=== PATIENT | female | born 1970 | race Hispanic/Latino ===

== ENCOUNTER → 2020-03-03 | Outpatient (CLI) | payer OTHER | END | disposition home or self-care (01) | LOC: RAH 13:34 | PROVIDERS: ATTEND Nurse Practitioner Adult Health | DX: Z12.31 Encounter for screening mammogram for malignant neoplasm of breast (principal) | CPT/HCPCS: 77067 ==

== ENCOUNTER 2020-05-24 04:55 | Observation (INO) | payer OTHER ==
[~2020-05-24] VITALS: Ht 160 cm; Wt 81.6 kg
[2020-05-24 06:24] VITALS: BP 138/88
[2020-05-24] MEDS ORDERED: GLIM2TAB30 PO (06:26)
[2020-05-24] MEDS ORDERED: LACTULOSE 20 GM/30 ML UDCUP PO PRN (07:30)
[2020-05-24] MEDS ORDERED: ONDANSETRON HCL 4 MG/2 ML VIAL IV PRN (07:30)
[2020-05-24] MEDS ORDERED: ACETAMINOPHEN 325 MG TAB PO PRN (07:30)
[2020-05-24 07:32] VITALS: BP 144/77
[2020-05-24 07:49] LABS: BASOPHILS % (AUTO) 0.2 % (0.0-5.0); EOSINOPHILS % (AUTO) 0.4 % (0.0-8.0); HEMATOCRIT 36.2 % (36-48); LYMPHOCYTES % (AUTO) 12.7 % (21.0-51.0); MEAN CORPUSCULAR HEMOGLOBIN 28.6 pg (27.0-33.0); MEAN CORPUSCULAR HGB CONC 33.7 g/dL (32.0-36.0); MEAN CORPUSCULAR VOLUME 84.8 fL (79-99); MONOCYTES % (AUTO) 5.8 % (3.0-13.0); NEUTROPHILS % (AUTO) 80.5 % (40.0-77.0); PLATELET COUNT (AUTO) 286 K/uL (130-400); RED BLOOD CELL COUNT(AUTO) 4.27 MIL/uL (4.00-5.50); RED CELL DISTRIBUTION WIDTH 14.3 % (11.0-15.5); WHITE BLOOD COUNT (AUTO) 13.5 K/uL (4.8-10.8)
[2020-05-24] MEDS: CEFTRIAXONE SODIUM 1 GM IV SCH (08:10)
[2020-05-24] MEDS: SODIUM CHLORIDE 0.9% 1000ML 1,000 ML IV SCH ×3 (08:10→21:26)
[2020-05-24 08:33] LABS: ALBUMIN 2.9 g/dL (3.5-5.0); BILIRUBIN,TOTAL 0.9 mg/dL (0.2-1.0); CREATININE 0.8 mg/dL (0.5-1.5); POTASSIUM 3.6 mmol/L (3.5-5.1); TOTAL PROTEIN, SERUM 6.7 g/dL (6.0-8.3)
[2020-05-24] MEDS: ENOXAPARIN SODIUM 40 MG/0.4 ML SYRINGE SQ SCH (10:02)
[2020-05-24] MEDS: FAMOTIDINE 20MG TAB 20 MG TAB PO SCH ×2 (10:03→21:26)
[2020-05-24 11:15] VITALS: BP 151/81
[2020-05-24] MEDS: INSULIN HUMULIN R 100 UNIT/ML 3ML SQ SCH ×3 (12:37→21:36)
[2020-05-24] MEDS ORDERED: ATOR10TA69 PO (13:55)
[2020-05-24] MEDS ORDERED: METO-391 PO (13:55)
[2020-05-24] MEDS: ACETAMINOPHEN 325 MG TAB PO PRN (15:28)
[2020-05-24 16:20] VITALS: BP 162/91
[2020-05-24 19:32] VITALS: BP 165/90
[2020-05-24 23:26] VITALS: BP 156/84
[2020-05-25 04:05] VITALS: BP 158/94
[2020-05-25] MEDS: SODIUM CHLORIDE 0.9% 1000ML 1,000 ML IV SCH (04:18)
[2020-05-25] MEDS: ACETAMINOPHEN 325 MG TAB PO PRN (04:18)
[2020-05-25] MEDS: CEFTRIAXONE SODIUM 1 GM IV SCH (04:18)
[2020-05-25 05:40] LABS: BASOPHILS % (AUTO) 0.4 % (0.0-5.0); EOSINOPHILS % (AUTO) 0.9 % (0.0-8.0); HEMATOCRIT 37.2 % (36-48); LYMPHOCYTES % (AUTO) 14.6 % (21.0-51.0); MEAN CORPUSCULAR HEMOGLOBIN 27.7 pg (27.0-33.0); MEAN CORPUSCULAR HGB CONC 32.8 g/dL (32.0-36.0); MEAN CORPUSCULAR VOLUME 84.4 fL (79-99); MONOCYTES % (AUTO) 7.7 % (3.0-13.0); NEUTROPHILS % (AUTO) 76.2 % (40.0-77.0); PLATELET COUNT (AUTO) 319 K/uL (130-400); RED BLOOD CELL COUNT(AUTO) 4.41 MIL/uL (4.00-5.50); RED CELL DISTRIBUTION WIDTH 13.8 % (11.0-15.5); WHITE BLOOD COUNT (AUTO) 8.5 K/uL (4.8-10.8)
[2020-05-25 05:42] LABS: CREATININE 0.7 mg/dL (0.5-1.5); POTASSIUM 3.7 mmol/L (3.5-5.1)
[2020-05-25] MEDS: INSULIN HUMULIN R 100 UNIT/ML 3ML SQ SCH ×2 (06:13→11:36)
[2020-05-25 07:43] VITALS: BP 149/78
[2020-05-25] MEDS: FAMOTIDINE 20MG TAB 20 MG TAB PO SCH (08:43)
[2020-05-25] MEDS: ENOXAPARIN SODIUM 40 MG/0.4 ML SYRINGE SQ SCH (08:45)
[2020-05-25] MEDS ORDERED: METOPROLOL SUCCINATE 50 MG TAB.SR.24H PO SCH (09:00)
[2020-05-25] MEDS ORDERED: CEFD300C3 PO (10:43)
[2020-05-25 11:00] VITALS: BP 144/85
[2020-05-25 16:00] VITALS: BP 151/84
[2020-05-25] MEDS ORDERED: ATORVASTATIN CALCIUM 10 MG TABLET PO SCH (21:00)
== END 2020-05-25 16:54 | disposition home or self-care (01) ==
LOC: INTOOBSV 06:20 → 3CH 06:20
PROVIDERS: ADMIT Internal Medicine; ATTEND Internal Medicine
DX: N39.0 Urinary tract infection, site not specified (principal); R65.10 Systemic inflammatory response syndrome (SIRS) of non-infectious origin without acute organ dysfunction; K76.0 Fatty (change of) liver, not elsewhere classified; E11.9 Type 2 diabetes mellitus without complications; N20.0 Calculus of kidney; I10 Essential (primary) hypertension; R16.0 Hepatomegaly, not elsewhere classified; Z90.49 Acquired absence of other specified parts of digestive tract; Z79.899 Other long term (current) drug therapy; Z88.8 Allergy status to other drugs, medicaments and biological substances
CPT/HCPCS: 36415 ×2; 71045; 80048; 80053; 82948 ×5; 83605; 84145; 85025 ×2; 87040 ×2; 87088; 96361 ×2; 96372 ×2; 96374; 96376; G0378 ×36; J0696 ×2; J1650 ×2; J1815 ×4; J7030 ×3

== ENCOUNTER → 2022-07-25 | Outpatient (CLI) | payer OTHER ==
[~2022-07-25] MED LIST: ATOR10TA69 PO; CEFD300C3 PO; GLIM2TAB30 PO; METO-391 PO
== END | disposition home or self-care (01) ==
LOC: RAH 12:55
PROVIDERS: ATTEND Internal Medicine Cardiovascular Disease
DX: Z13.6 Encounter for screening for cardiovascular disorders (principal)
CPT/HCPCS: 75571

== ENCOUNTER → 2022-07-30 | Outpatient (CLI) | payer OTHER | END | disposition home or self-care (01) | LOC: SHCH 12:57 | PROVIDERS: ATTEND Internal Medicine Cardiovascular Disease | DX: I10 Essential (primary) hypertension (principal); R42 Dizziness and giddiness | CPT/HCPCS: 93306 ==